=== PATIENT | female | born 1965 | race Hispanic/Latino ===

== ENCOUNTER 2017-12-08 18:15 | Emergency (ER) | payer SELFPAY ==
[2017-12-08] MEDS ORDERED: KETOROLAC TROMETHAMINE 60 MG/2 ML VIAL ONE (18:49)
== END 2017-12-08 19:22 | disposition home or self-care (01) ==
LOC: EDH 18:15
DX: M17.11 Unilateral primary osteoarthritis, right knee (principal); Z88.0 Allergy status to penicillin
CPT/HCPCS: 96372; 99283; J1885

== ENCOUNTER 2018-11-17 18:52 | Emergency (ER) | payer OTHER ==
[2018-11-17] MEDS ORDERED: KETOROLAC TROMETHAMINE 60 MG/2 ML VIAL ONE (19:34)
== END 2018-11-17 19:54 | disposition home or self-care (01) ==
LOC: EDH 18:52
DX: G89.29 Other chronic pain (principal); M25.561 Pain in right knee; Z88.0 Allergy status to penicillin
CPT/HCPCS: 73562; 96372; 99283; J1885

== ENCOUNTER 2019-05-28 16:16 | Emergency (ER) | payer SELFPAY ==
[2019-05-28] MEDS ORDERED: PREDNISONE 20 MG TABLET ONE (16:37)
[2019-05-28] MEDS ORDERED: NAPROXEN 500 MG TABLET ONE (16:37)
== END 2019-05-28 17:34 | disposition home or self-care (01) ==
LOC: EDH 16:16
DX: M17.11 Unilateral primary osteoarthritis, right knee (principal); G89.29 Other chronic pain; Z88.0 Allergy status to penicillin; Z98.51 Tubal ligation status
CPT/HCPCS: 73562